=== PATIENT | female | born 1960 | race Caucasian/White ===

== ENCOUNTER 2023-02-08 19:37 | Outpatient (REF) | payer SELFPAY ==
[2023-02-08 19:38] VITALS: BP 147/52; PULSE 100; PULSE 111; RESP 14; RESP 18; TEMP 36; O2SAT 97; O2SAT 99; BMI 24.7
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
[2023-02-08 20:10] VITALS: PULSE 97; RESP 18; O2SAT 99
[2023-02-08] MEDS: Diphth,Pertuss(Acell),Tet Vac 0.5 ML Vial IM (20:29)
[2023-02-08] MEDS: Lidocaine 1% (20 ml mdv) 20 ML Vial INFILT (20:30)
== END 2023-02-08 20:36 ==
LOC: ED 19:37
PROVIDERS: Visit Provider Emergency Medicine
DX: S01.01XA Laceration without foreign body of scalp, initial encounter (principal); F17.200 Nicotine dependence, unspecified, uncomplicated; Y04.8XXA Assault by other bodily force, initial encounter; Z23 Encounter for immunization
CPT/HCPCS: 12001; 90471; 90715